=== PATIENT | female | born 1965 | race Caucasian/White ===

== ENCOUNTER 2016-09-06 17:35 | Emergency (ER) | payer OTHER ==
[~2016-09-06] VITALS: Ht 175.3 cm; Wt 126.1 kg
[~2016-09-06 17:35] MED LIST: ALBUAER3 INH; ZOMI5TAB5 PO
[2016-09-06 17:43] VITALS: BP 144/83; PULSE 113; RESP 22; TEMP 98.3; O2SAT 99
--- NOTE | 2016-09-06 18:13 | PD ---
HPI Chief Complaint: Respiratory Symptoms Time Seen by Provider: 17:56 Travel History International Travel<30 days: No Contact w/Intl Traveler<30days: No Traveled to known affect area: No History of Present Illness HPI This 51-year-old female is complaining of chest pain and shortness of breath. She's been having pain for several days. It's mostly under the right breast and radiates to the back. It is aggravated by deep breathing. She has had a cough off and on since . She saw Dr. Valdivia and was given a course of steroids which seemed this helped the cough. After she started the steroids she developed this pain. 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 It was thought secondary to control pills and she has had a good recovery. She has never smoked. She has no history of heart disease. She had a flu test done yesterday. She started feeling short of breath this morning. PFSH Past Medical History Cerebrovascular Accident: Yes GERD: Yes Migraines: Yes ?: Not Tubal Ligation: Yes Social History Alcohol Use: No Tobacco Use: No Allergies-Medications (Allergen,Severity, Reaction): Coded Allergies: Ampicillin (Verified Allergy, Unknown, 09/06/16) Codeine (Verified Allergy, Unknown, 09/06/16) Latex (Verified Allergy, Unknown, 09/06/16) Levaquin (Verified Allergy, Unknown, 09/06/16) hives Sulfa (Verified Allergy, Unknown, 09/06/16) Reported Meds & Prescriptions Reported Meds & Active Scripts Active Zomig (Zolmitriptan) 5 Mg Tab 5 Mg PO ONCE PRN A second dose may be administered at least 2 hours after the first dose. Maximum dose 10 mg in 24 hours. Reported Ibuprofen 600 Mg Tab 600 Mg PO Q8HR PRN Review of Systems General / Constitutional: Positive: Fever, No: Chills Eyes: No: Diploplia, Blurred Vision HENT: No: Headaches, Vertigo Cardiovascular: Positive: Chest Pain or Discomfort Respiratory: Positive: Pleuritic Pain, No: Cough, Orthopnea, Hemoptysis Gastrointestinal: No: Nausea, Vomiting Genitourinary: No: Urgency, Frequency Musculoskeletal: No: Myalgias, Arthralgias Neurologic: No: Weakness, Dizziness Psychiatric: No: Disorder of Thought, Mood Disorder Hematologic/Lymphatic: No: Easy Bruising Physical Exam Narrative GENERAL: Well-developed female SKIN: Warm and dry. HEAD: Atraumatic. Normocephalic. EYES: Pupils equal and round. No scleral icterus. No injection or drainage. ENT: No nasal bleeding or discharge. Mucous membranes pink and moist. NECK: Trachea midline. No JVD. CARDIOVASCULAR: Regular rate and rhythm. No murmur appreciated. RESPIRATORY: No accessory muscle use. Clear to auscultation. Breath sounds equal bilaterally. GASTROINTESTINAL: Abdomen soft, non-tender, nondistended. Hepatic and splenic margins not palpable. MUSCULOSKELETAL: No obvious deformities. No clubbing. No cyanosis. No edema. NEUROLOGICAL: Awake and alert. No obvious cranial nerve deficits. Motor grossly within normal limits. Normal speech. PSYCHIATRIC: Appropriate mood and affect; insight and judgment normal. Data Data Last Documented VS Vital Signs Date Time Temp Pulse Resp B/P Pulse Ox O2 Delivery O2 Flow Rate FiO2 09/06/16 21:40 98.5 09/06/16 21:00 93 18 136/62 96 Room Air Orders Electrocardiogram (09/06/16 18:08) Complete Blood Count With Diff (09/06/16 18:08) Comprehensive Metabolic Panel (09/06/16 18:08) Blood Culture (09/06/16 18:08) Urinalysis - C+S If Indicated (09/06/16 18:08) D-Dimer (09/06/16 18:08) Chest, Single Ap (09/06/16 18:08) Troponin I (09/06/16 18:08) B-Type Natriuretic Peptide (09/06/16 18:08) Ct Pulmonary Angiogram (09/06/16 19:18) Acetaminophen (Tylenol) (09/06/16 19:30) Ondansetron Inj (Zofran Inj) (09/06/16 21:00) Iohexol 350 Inj (Omnipaque 350 Inj) (09/06/16 21:35) Electrocardiogram (09/06/16 21:57) Labs Laboratory Tests Test 09/06/16 09/06/16 18:15 19:10 White Blood Count 10.0 TH/MM3 Red Blood Count 4.21 MIL/MM3 Hemoglobin 12.1 GM/DL Hematocrit 36.3 % Mean Corpuscular Volume 86.3 FL Mean Corpuscular Hemoglobin 28.7 PG Mean Corpuscular Hemoglobin 33.3 % Concent Red Cell Distribution Width 13.7 % Platelet Count 205 TH/MM3 Mean Platelet Volume 8.6 FL Neutrophils (%) (Auto) 49.6 % Lymphocytes (%) (Auto) 40.4 % Monocytes (%) (Auto) 8.4 % Eosinophils (%) (Auto) 0.9 % Basophils (%) (Auto) 0.7 % Neutrophils # (Auto) 5.0 TH/MM3 Lymphocytes # (Auto) 4.0 TH/MM3 Monocytes # (Auto) 0.8 TH/MM3 Eosinophils # (Auto) 0.1 TH/MM3 Basophils # (Auto) 0.1 TH/MM3 CBC Comment DIFF FINAL Differential Comment D-Dimer Quantitative (PE/DVT) 1.70 MG/L FEU Sodium Level 139 MEQ/L Potassium Level 3.9 MEQ/L Chloride Level 103 MEQ/L Carbon Dioxide Level 27.7 MEQ/L Anion Gap 8 MEQ/L Blood Urea Nitrogen 15 MG/DL Creatinine 0.85 MG/DL Estimat Glomerular Filtration 70 ML/MIN Rate Random Glucose 114 MG/DL Calcium Level 8.1 MG/DL Total Bilirubin 0.4 MG/DL Aspartate Amino Transf 51 U/L (AST/SGOT) Alanine Aminotransferase 84 U/L (ALT/SGPT) Alkaline Phosphatase 132 U/L Troponin I LESS THAN 0.02 NG/ML B-Type Natriuretic Peptide 13 PG/ML Total Protein 6.8 GM/DL Albumin 3.1 GM/DL Urine Color YELOW Urine Turbidity CLEAR Urine pH 6.5 Urine Specific Otto 1.023 Urine Protein NEG mg/dL Urine Glucose (UA) NEG mg/dL Urine Ketones NEG mg/dL Urine Occult Blood NEG Urine Nitrite NEG Urine Bilirubin NEG Urine Leukocyte Esterase NEG Urine WBC 0-2 /hpf Urine Squamous Epithelial 0-5 /hpf Cells Microscopic Urinalysis Comment CULT NOT INDICATED MDM Medical Decision Making Medical Screen Exam Complete: Yes Emergency Medical Condition: Yes Medical Record Reviewed: Yes Differential Diagnosis Patient is complaining of intermittent fever and right-sided pleuritic pain. Differential includes pleurisy, pyelonephritis, PE Narrative Course A d-dimer was elevated so a CTA has been done. CTA is negative for PE and also does not show any infiltrate nodular mass. Her white count is 10,000. Troponin is 0.02. Urinalysis is negative for infection. EKG does show some lateral ST depression. This pain however is not suggestive of cardiac ischemia Diagnosis Primary Impression: Viral syndrome Additional Impression: Pleurisy Referrals: Tonya Valdivia MD Additional Instructions: Take Tylenol for fever Disposition: 01 DISCHARGE HOME Condition: Stable Tim Damon MD Sep 06, 2016 18:13
[2016-09-06 18:28] VITALS: BP 125/63; PULSE 95; RESP 17; TEMP 98.6; O2SAT 96
[2016-09-06] MEDS ORDERED: IBUP-232 PO (18:28)
--- NOTE | 2016-09-06 18:34 | RADHPO ---
EXAM DATE/TIME: 09/06/2016 18:28 [facility] COMPARISON: No previous studies available for comparison. INDICATIONS : Chest pains. MEDICAL HISTORY : Stroke. SURGICAL HISTORY : None. ENCOUNTER: Initial ACUITY: 1 week PAIN SCORE: 7/10 LOCATION: Right chest FINDINGS: The lungs are clear without infiltrate, nodule, or mass. There is no appreciable pleural effusion fo r technique. Heart and mediastinum are unremarkable. CONCLUSION: No acute cardiopulmonary disease. Ralph Mota MD on September 06, 2016 at 18:32 Board Certified Radiologist. This report was verified electronically.
[2016-09-06 18:35] LABS: BASOPHIL # 0.1 TH/MM3 (0-0.2); BASOPHIL % 0.7 % (0.0-2.0); EOSINOPHIL # 0.1 TH/MM3 (0-0.4); EOSINOPHIL % 0.9 % (0.0-4.0); HEMATOCRIT 36.3 % (35.0-46.0); HEMO FLAGS DIFF FINAL; LYMPH % 40.4 % (9.0-44.0); MEAN CELL VOLUME 86.3 FL (80.0-100.0); MEAN CORPUSCULAR HEMOGLOBIN 28.7 PG (27.0-34.0); MEAN CORPUSCULAR HGB CONC 33.3 % (32.0-36.0); MONO % 8.4 % (0.0-8.0); NEUT % 49.6 % (16.0-70.0); PLATELET COUNT 205 TH/MM3 (150-450); RED BLOOD COUNT 4.21 MIL/MM3 (4.00-5.30); RED CELL DISTRIBUTION WIDTH 13.7 % (11.6-17.2)
[2016-09-06 18:42] LABS: CHLORIDE 103 MEQ/L (98-107); POTASSIUM 3.9 MEQ/L (3.5-5.1); SODIUM (NA) 139 MEQ/L (136-145)
[2016-09-06 18:46] LABS: ANION GAP 8 MEQ/L (5-15); BICARBONATE 27.7 MEQ/L (21.0-32.0); BLOOD UREA NITROGEN 15 MG/DL (7-18)
[2016-09-06 18:49] LABS: ALT (GPT) 84 U/L (10-53); AST (GOT) 51 U/L (15-37); GLOMERULAR FILTRATION RATE 70 ML/MIN (>89)
[2016-09-06 18:51] LABS: TOTAL BILIRUBIN ADULT 0.4 MG/DL (0.2-1.0)
[2016-09-06 18:52] LABS: ALKALINE PHOSPHATASE 132 U/L (45-117)
[2016-09-06 19:00] VITALS: BP 133/67; PULSE 95; RESP 18; O2SAT 98
[2016-09-06 19:18] LABS: BLOOD, URINE NEG (NEG); GLUCOSE,URINE NEG (NEG); KETONE, URINE NEG (NEG); NITRITE,URINE NEG (NEG); PH, URINE 6.5 (5.0-8.5)
[2016-09-06] MEDS ORDERED: ACETAMINOPHEN 500 MG CPLT PO ONE (19:30)
[2016-09-06 19:32] LABS: URINE COLOR YELOW (YELLW/STRAW)
[2016-09-06 19:33] LABS: COMMENT (UR) CULT NOT INDICATED; CULTURE IF INDICATED CULT NOT INDICATED; SQUAMOUS EPITHELIAL CELL URINE 0-5 /hpf (0-5); WBC, URINE 0-2 /hpf (0-5)
[2016-09-06 21:00] VITALS: BP 136/62; PULSE 93; RESP 18; TEMP 99.8; O2SAT 96
[2016-09-06] MEDS ORDERED: ONDANSETRON HCL 4 MG/2 ML VIAL IV PUSH ONE (21:00)
[2016-09-06 21:15] VITALS: RESP 16
[2016-09-06] MEDS ORDERED: IOHEXOL 350 MG/ML 10 ML VIAL (for RAD DIAG) IV ONE (21:35)
[2016-09-06 21:40] VITALS: TEMP 98.5
--- NOTE | 2016-09-06 21:49 | RADHPO ---
EXAM DATE/TIME: 09/06/2016 21:16 [facility] COMPARISON: No previous studies available for comparison. INDICATIONS : Chest pain. Shortness of breath. IV CONTRAST: 75 cc Omnipaque 350 (iohexol) IV RADIATION DOSE: 21.73 CTDIvol (mGy) MEDICAL HISTORY : Gastroesophageal reflux disease. Diabetes mellitus type 2. Cerebrovascular disease. SURGICAL HISTORY : Tubal ligation. ENCOUNTER: Initial ACUITY: 3 days PAIN SCALE: 8/10 LOCATION: Right chest TECHNIQUE: Volumetric scanning of the chest was performed using a pulmonary embolism protocol MIP images were re constructed. Using automated exposure control and adjustment of the mA and/or kV according to patien t size, radiation dose was kept as low as reasonably achievable to obtain optimal diagnostic quality images. FINDINGS: The lungs are clear without infiltrate, nodule, or mass. There is no pleural effusion. No appreciab le pathological adenopathy is seen within the mediastinum. There is no evidence for PE for technique. CONCLUSION: Unremarkable study. Ralph Moat MD on September 06, 2016 at 21:45 Board Certified Radiologist. This report was verified electronically.
[2016-09-06] MEDS ORDERED: ZOFR4TAB3 SL (22:25)
--- NOTE | 2016-09-07 23:14 | EKG ---
Date Performed: 09/06/2016 Time Performed: 22:02:12 PTAGE: 51 years EKG: Sinus rhythm Extensive ST-T changes may be due to myocardial ischemia Abnormal ECG PREVIOUS TRACING : 09/06/2016 17.56 DOCTOR: Ismael Mi Interpretating Date/Time 09/07/2016 23:12:55
--- NOTE | 2016-09-07 23:25 | EKG ---
Date Performed: 09/06/2016 Time Performed: 17:56:24 PTAGE: 51 years EKG: Sinus tachycardia Short QT interval Extensive ST-T changes may be due to myocardial ischemi a Abnormal ECG NO PREVIOUS TRACING DOCTOR: Ismael Mi Interpretating Date/Time 09/07/2016 23:23:52
[2016-09-10] MEDS ORDERED: PROM1SUP7 RECTAL (15:07)
[2016-09-11] MEDS ORDERED: KETO60IN6 IM (16:37)
[2016-09-11] MEDS ORDERED: CYCL7.5T33 PO (16:47)
[2016-09-28] MEDS ORDERED: NYSTPOW TOPICAL (13:20)
[2016-10-16] MEDS ORDERED: ZOMI5TAB5 PO (13:20)
== END 2016-09-06 22:48 | disposition home or self-care (01) ==
LOC: PHED 17:35
DX: B34.9 Viral infection, unspecified (principal); R09.1 Pleurisy; R94.31 Abnormal electrocardiogram [ECG] [EKG]; R00.0 Tachycardia, unspecified
CPT/HCPCS: 71010; 71275; 80053; 81001; 83880; 84484; 85025; 85379; 87040; 93005; 96374; 99285; J2405; Q9967